=== PATIENT | male | born 1985 | race Caucasian/White ===

== ENCOUNTER 2019-07-22 16:36 | Emergency (ER) | payer BC ==
[2019-07-22] MEDS ORDERED: HYDROmorphone 0.5 MG/0.5 ML Syringe IVPUSH ONE (17:05)
[2019-07-22] MEDS ORDERED: Sodium Chloride 0.9% 10 ML Syringe FLUSH PRN ×2 (17:05→17:19)
[2019-07-22] MEDS ORDERED: Ondansetron 4 MG/2 ML SDV IVPUSH ONE (17:05)
[2019-07-22] MEDS ORDERED: Ketorolac 30 MG/ML SDV IVPUSH ONE (17:05)
[2019-07-22] MEDS ORDERED: Sodium Chloride 0.9% 1,000 ML IV SCH (17:15)
[2019-07-22] MEDS ORDERED: Iopamidol 612 MG/ML 100 ML Bottle IVPUSH ONE (17:19)
[2019-07-22] MEDS ORDERED: Diatrizoate Meglumine/Diatrizoate Sodium 37% 120 ML Bottle PO ONE (17:19)
--- NOTE | 2019-07-22 17:26 | EDM.PDOC ---
ED HPI GENERAL MEDICAL PROBLEM - General Chief Complaint: Abdominal Pain Stated Complaint: ABDOMINAL PAIN Time Seen by Provider: 07/22/19 16:49 Source of Information: Reports: Patient History Limitations: Reports: No Limitations - History of Present Illness INITIAL COMMENTS - FREE TEXT/NARRATIVE: Patient is a 33 year old male who presents with c/o LLQ abdominal pain, diarrhea , nausea, and vomiting. Pt states that when he awoke this morning, he had a couple episodes of watery diarrhea. While on his way to work, he developed LLQ abdominal pain which has been getting progressively worse throughout the day. He also c/o nausea with 1 emesis today. He denies a known fever or chills. He denies any chronic health conditions and has had no previous abdominal surgeries. Left Abdominal Pain Score (Numeric/FACES): 7 - Related Data Allergies Allergy/AdvReac Type Severity Reaction Status Date / Time No Known Allergies Allergy Verified 07/22/19 16:50 Home Meds: Home Meds Dicyclomine [Bentyl] 20 mg PO TID PRN #10 tab 07/22/19 [Rx] Ondansetron [Zofran ODT] 4 mg PO Q6H PRN #10 tab.dis 07/22/19 [Rx] Past Medical History Respiratory History: Reports: Sleep Apnea, Other (See Below) Social & Family History - Tobacco Use Smoking Status *Q: Current Every Day Smoker Years of Tobacco use: 14 Packs/Tins Daily: 0.5 - Caffeine Use Caffeine Use: Reports: None - Recreational Drug Use Recreational Drug Use: No ED ROS GENERAL - Review of Systems Review Of Systems: See Below Constitutional: Reports: No Symptoms. Denies: Fever, Chills, Weakness HEENT: Reports: No Symptoms Respiratory: Reports: No Symptoms. Denies: Shortness of Breath, Cough Cardiovascular: Reports: No Symptoms. Denies: Chest Pain Endocrine: Reports: No Symptoms GI/Abdominal: Reports: Abdominal Pain, Diarrhea, Nausea, Vomiting. Denies: Bloody Stool, Hematemesis, Hematochezia : Reports: No Symptoms. Denies: Flank Pain Musculoskeletal: Reports: No Symptoms Skin: Reports: No Symptoms Neurological: Reports: No Symptoms Psychiatric: Reports: No Symptoms Hematologic/Lymphatic: Reports: No Symptoms Immunologic: Reports: No Symptoms ED EXAM, GI/ABD - Physical Exam Exam: See Below Exam Limited By: No Limitations General Appearance: Alert, WD/WN, No Apparent Distress Respiratory/Chest: No Respiratory Distress, Lungs Clear, Normal Breath Sounds, No Accessory Muscle Use, Chest Non-Tender Cardiovascular: Normal Peripheral Pulses, Regular Rate, Rhythm, No Edema, No Gallop, No JVD, No Murmur, No Rub GI/Abdominal Exam: Normal Bowel Sounds, Soft, No Organomegaly, No Distention, Tender (LLQ abdominal pain). No: Guarding, Rigid, Rebound Neurological: Alert, Oriented, CN II-XII Intact, Normal Cognition, Normal Gait, Normal Reflexes, No Motor/Sensory Deficits Psychiatric: Normal Affect, Normal Mood Skin Exam: Warm, Dry, Intact, Normal Color, No Rash Course - Vital Signs Last Recorded V/S: Last Vital Signs Temp 98.1 F 07/22/19 16:47 Pulse 104 H 07/22/19 16:47 Resp 16 07/22/19 16:47 BP 125/92 H 07/22/19 16:47 Pulse Ox 99 07/22/19 16:47 - Orders/Labs/Meds Orders: Active Orders 24 hr Category Date Time Status Peripheral IV Care [RC] . DIRECTED Care 07/22/19 17:05 Active Dicyclomine [Bentyl] Med 07/22/19 19:07 Once 20 mg PO ONETIME ONE Sodium Chloride 0.9% [Normal Saline] 1,000 ml Med 07/22/19 17:15 Active IV ASDIRECTED Sodium Chloride 0.9% [Saline Flush] Med 07/22/19 17:05 Active 10 ml FLUSH ASDIRECTED PRN Sodium Chloride 0.9% [Saline Flush] Med 07/22/19 17:19 Active 10 ml FLUSH ONETIME PRN Peripheral IV Insertion Adult [OM.PC] Stat Oth 07/22/19 17:04 Ordered Medication Orders Sodium Chloride (Normal Saline) 1,000 mls @ 999 mls/hr IV ASDIRECTED FILIPPO Last Admin: 07/22/19 17:27 Dose: 999 mls/hr Sodium Chloride (Saline Flush) 10 ml FLUSH ASDIRECTED PRN PRN Reason: Keep Vein Open Last Admin: 07/22/19 18:32 Dose: 10 ml Sodium Chloride (Saline Flush) 10 ml FLUSH ONETIME PRN PRN Reason: Keep Vein Open Last Admin: 07/22/19 17:15 Dose: 10 ml Labs: Laboratory Tests 07/22/19 07/22/19 07/22/19 Range/Units 17:15 17:15 17:20 WBC 9.43 H (4.23-9.07) K/mm3 RBC 5.20 (4.63-6.08) M/mm3 Hgb 15.8 (13.7-17.5) gm/dl Hct 46.4 (40.1-51.0) % MCV 89.2 (79.0-92.2) fl MCH 30.4 (25.7-32.2) pg MCHC 34.1 (32.2-35.5) g/dl RDW Std Deviation 42.2 (35.1-43.9) fL Plt Count 166 (163-337) K/mm3 MPV 10.8 (9.4-12.3) fl Neut % (Auto) 75.3 H (34.0-67.9) % Lymph % (Auto) 13.7 L (21.8-53.1) % [place] % (Auto) 8.9 (5.3-12.2) % Eos % (Auto) 1.5 (0.8-7.0) Baso % (Auto) 0.3 (0.1-1.2) % Neut # (Auto) 7.10 H (1.78-5.38) K/mm3 Lymph # (Auto) 1.29 L (1.32-3.57) K/mm3 [place] # (Auto) 0.84 H (0.30-0.82) K/mm3 Eos # (Auto) 0.14 (0.04-0.54) K/mm3 Baso # (Auto) 0.03 (0.01-0.08) K/mm3 Sodium 139 (136-145) mEq/L Potassium 4.3 (3.5-5.1) mEq/L Chloride 104 (98-107) mEq/L Carbon Dioxide 29 (21-32) mEq/L Anion Gap 10.3 (5-15) BUN 15 (7-18) mg/dL Creatinine 1.3 (0.7-1.3) mg/dL Est Cr Clr Drug Dosing 88.71 mL/min Estimated GFR (MDRD) > 60 (>60) mL/min BUN/Creatinine Ratio 11.5 L (14-18) Glucose 89 (74-106) mg/dL Calcium 9.4 (8.5-10.1) mg/dL Total Bilirubin 0.5 (0.2-1.0) mg/dL AST 18 (15-37) U/L ALT 55 (16-63) U/L Alkaline Phosphatase 59 (46-116) U/L C-Reactive Protein 3.9 H* (<1.0) mg/dL Total Protein 7.6 (6.4-8.2) g/dl Albumin 4.0 (3.4-5.0) g/dl Globulin 3.6 gm/dL Albumin/Globulin Ratio 1.1 (1-2) Lipase 100 (73-393) U/L Urine Color Yellow (Yellow) Urine Appearance Clear (Clear) Urine pH 7.0 (5.0-8.0) Ur Specific [place] 1.025 (1.005-1.030) Urine Protein Negative (Negative) Urine Glucose (UA) Negative (Negative) Urine Ketones Negative (Negative) Urine Occult Blood Negative (Negative) Urine Nitrite Negative (Negative) Urine Bilirubin Negative (Negative) Urine Urobilinogen 0.2 (0.2-1.0) Ur Leukocyte Esterase Negative (Negative) Urine RBC 0-5 (0-5) /hpf Urine WBC 0-5 (0-5) /hpf Ur Squamous Epith Cells 0-5 (0-5) /hpf Amorphous Sediment Few H (NOT SEEN) /hpf Urine Bacteria Few (FEW) /hpf Urine Mucus Few (FEW) /hpf Meds: Medications Generic Name Dose Route Start Last Admin Trade Name Freq PRN Reason Stop Dose Admin Sodium Chloride 1,000 mls @ 999 mls/hr 07/22/19 17:15 07/22/19 17:27 Normal Saline IV 999 mls/hr ASDIRECTED FILIPPO Administration Sodium Chloride 10 ml 07/22/19 17:05 07/22/19 18:32 Saline Flush FLUSH 10 ml ASDIRECTED PRN Administration Keep Vein Open Sodium Chloride 10 ml 07/22/19 17:19 07/22/19 17:15 Saline Flush FLUSH 10 ml ONETIME PRN Administration Keep Vein Open Discontinued Medications Generic Name Dose Route Start Last Admin Trade Name Freq PRN Reason Stop Dose Admin Diatrizoate Meglum/Diatrizoate Sod 40 ml 07/22/19 17:19 07/22/19 18:31 Gastrografin 37% PO 07/22/19 17:20 40 ml ONETIME ONE Administration Hydromorphone HCl 0.5 mg 07/22/19 17:05 07/22/19 17:25 Dilaudid IVPUSH 07/22/19 17:06 Not Given ONETIME ONE Iopamidol 100 ml 07/22/19 17:19 07/22/19 18:30 Isovue-300 (61%) IVPUSH 07/22/19 17:20 100 ml ONETIME ONE Administration Ketorolac Tromethamine 30 mg 07/22/19 17:05 07/22/19 17:25 Toradol IVPUSH 07/22/19 17:06 30 mg ONETIME ONE Administration Ondansetron HCl 4 mg 07/22/19 17:05 07/22/19 17:23 Zofran IVPUSH 07/22/19 17:06 4 mg ONETIME ONE Administration - Re-Assessments/Exams Free Text/Narrative Re-Assessment/Exam: 07/22/19 19:08 CT scan of the abdomen pelvis showed bowel wall thickening within the cecum and the right colon compatible with a mild colitis. This however does not correlate with the area where the patient is tender. CT scan also showed gastroesophageal reflux of contrast with thickening of the distal esophageal wall suggesting chronic reflux esophagitis. Patient is not complaining of any upper abdominal pain at this time. My suspicions that he suffering from a viral gastroenteritis. We will discharge him home with a prescription for Bentyl for the abdominal cramping, as well as Zofran for nausea. Recommend a clear liquid diet for the next 24 to 48 hours. Recommend he follow-up in the clinic if his symptoms do not improve in the next 24 to 48 hours. Discharge instructions as documented. Departure - Departure Time of Disposition: 19:09 Disposition: Home, Self-Care 01 Condition: Good Clinical Impression: Gastroenteritis - Discharge Information *PRESCRIPTION DRUG MONITORING PROGRAM REVIEWED*: No *COPY OF PRESCRIPTION DRUG MONITORING REPORT IN PATIENT AMEE: No Prescriptions: Dicyclomine [Bentyl] 20 mg PO TID PRN #10 tab PRN Reason: Abdominal Pain Ondansetron [Zofran ODT] 4 mg PO Q6H PRN #10 tab.dis PRN Reason: Nausea/Vomiting Instructions: Viral Gastroenteritis, Adult Referrals: Jenna Naik PA-C [Primary Care Provider] - Forms: ED Department Discharge Additional Instructions: You were seen in the emergency department today for abdominal pain, diarrhea, nausea, and vomiting. Your work-up included blood work, urinalysis, and a CT scan of your abdomen and pelvis. Your work-up was found to be overall normal. There was a small area of inflammation in the right side of your colon, however this does not correlate with where your pain is located. As we discussed, it is likely that you are suffering from a viral gastroenteritis. A prescription for Bentyl for abdominal cramping and Zofran for nausea has been sent to [place] [facility]. Uses medications as prescribed. Recommend a clear liquid diet for the next 24 to 48 hours and then advance as tolerated. Avoid fruit juices and dairy products. If your pain has not resolved in 48 hours, would recommend that you follow-up in the clinic. If you experience any worsening symptoms, please not hesitate to return to the emergency department. Sepsis Event Note - Evaluation Sepsis Screening Result: No Definite Risk - Focused Exam Vital Signs: Vital Signs Temp Pulse Resp BP Pulse Ox 07/22/19 16:47 98.1 F 104 H 16 125/92 H 99 Date Exam was Performed: 07/22/19 Time Exam was Performed: 19:08 - My Orders Last 24 Hours: My Active Orders 07/22/19 17:04 Peripheral IV Insertion Adult [OM.PC] Stat 07/22/19 17:05 Peripheral IV Care [RC] . DIRECTED Sodium Chloride 0.9% [Saline Flush] 10 ml FLUSH ASDIRECTED PRN 07/22/19 17:15 Sodium Chloride 0.9% [Normal Saline] 1,000 ml IV ASDIRECTED 07/22/19 17:19 Sodium Chloride 0.9% [Saline Flush] 10 ml FLUSH ONETIME PRN 07/22/19 19:07 Dicyclomine [Bentyl] 20 mg PO ONETIME ONE - Assessment/Plan Last 24 Hours: My Active Orders 07/22/19 17:04 Peripheral IV Insertion Adult [OM.PC] Stat 07/22/19 17:05 Peripheral IV Care [RC] . DIRECTED Sodium Chloride 0.9% [Saline Flush] 10 ml FLUSH ASDIRECTED PRN 06/02/20 17:15 Sodium Chloride 0.9% [Normal Saline] 1,000 ml IV ASDIRECTED 07/22/19 17:19 Sodium Chloride 0.9% [Saline Flush] 10 ml FLUSH ONETIME PRN 07/22/19 19:07 Dicyclomine [Bentyl] 20 mg PO ONETIME ONE
--- NOTE | 2019-07-22 18:53 | CT ---
CT abdomen and pelvis Technique: Multiple axial sections were obtained from above the dome of the diaphragm inferiorly through the pubic symphysis. Intravenous and oral contrast was utilized. Delayed images were obtained through the bladder. Comparison: Prior abdominal x-ray performed earlier on the same day (2:46 PM). Findings: Visualized lung bases show nothing acute. Liver contains no focal parenchymal abnormality. Spleen appears within normal limits. Adrenal glands show no nodule. Pancreas is within normal limits. Gallbladder is collapsed but shows no calcified gallstones. Kidneys show symmetric contrast enhancement without hydronephrosis or mass. Aorta shows no aneurysm. No retroperitoneal adenopathy is seen. No mesenteric abnormalities are noted. No pelvic mass or adenopathy is identified. Delayed images shows contrast within the distal ureters and within the bladder. No inflammatory change or free fluid is seen within the abdomen or within the pelvis. Appendix not visualized with certainty. Mild bowel wall thickening is noted within the cecum and within the right colon. Small amount of gastroesophageal reflux is seen within the esophagus. Distal esophageal wall is also slightly thickened suggesting chronic reflux esophagitis. Bone window settings were reviewed. No acute osseous finding is appreciated. Impression: 1. Bowel wall thickening within the cecum and right colon. Findings are compatible with a mild colitis. 2. Gastroesophageal reflux of contrast with thickening of the distal esophageal wall suggesting chronic reflux esophagitis. Please correlate with patient's symptoms. 3. Nothing acute is otherwise seen on CT study of the abdomen and pelvis. Diagnostic code #3 This report was dictated in MDT
[2019-07-22] MEDS ORDERED: Dicyclomine 10 MG Cap PO ONE (19:07)
== END 2019-07-22 19:23 | disposition home or self-care (01) ==
LOC: JD.ED 16:36
DX: K52.9 Noninfective gastroenteritis and colitis, unspecified (principal); F17.210 Nicotine dependence, cigarettes, uncomplicated
CPT/HCPCS: 36415; 74177; 80053; 81001; 83690; 85025; 86140; 96361; 96374; 96375; 99284; A9270; J1885; J2405; J7030; Q9963; Q9967; 99283

== ENCOUNTER 2020-03-22 07:23 | Emergency (ER) | payer BC ==
--- NOTE | 2020-03-22 07:50 | EDM.PDOC ---
ED HPI GENERAL MEDICAL PROBLEM - General Chief Complaint: Eye Problems Stated Complaint: L EYE SWOLLEN/PAIN Time Seen by Provider: 03/22/20 07:40 Source of Information: Reports: Patient History Limitations: Reports: No Limitations - History of Present Illness INITIAL COMMENTS - FREE TEXT/NARRATIVE: The patient presents with left upper eyelid swelling and pain. This has been go ing on for a couple of days. This morning was the worst and he had a small pimple there and he popped it and now it is worse. He has no fever or chills. He still can see good. Onset: Gradual Duration: Day(s): Location: Reports: Face (Left upper eyelid) Quality: Reports: Sharp Severity: Moderate Improves with: Reports: None Worsens with: Reports: None Associated Symptoms: Reports: No Other Symptoms - Related Data Allergies Allergy/AdvReac Type Severity Reaction Status Date / Time No Known Allergies Allergy Verified 03/22/20 07:35 Home Meds: Home Meds Albuterol [Take Home: Albuterol 18 GM, 1 INH Pack] 1 puff INH BID PRN 03/22/20 [History] Fluticasone/Salmeterol [Advair 100-50] 1 puff INH BID 03/22/20 [History] Omeprazole 0 mg PO DAILY 03/22/20 [History] cephALEXin [Keflex] 500 mg PO Q6H #40 cap 03/22/20 [Rx] Past Medical History Respiratory History: Reports: Sleep Apnea, Other (See Below) Social & Family History - Tobacco Use Tobacco Use Status *Q: Current Every Day Tobacco User Years of Tobacco use: 15 Packs/Tins Daily: 0.5 - Caffeine Use Caffeine Use: Reports: Coffee - Alcohol Use Days Per Week of Alcohol Use: 2 Number of Drinks Per Day: 10 Total Drinks Per Week: 20 - Recreational Drug Use Recreational Drug Use: No ED ROS GENERAL - Review of Systems Review Of Systems: See Below Constitutional: Reports: No Symptoms HEENT: Reports: Other (Left upper eyelid swelling) Respiratory: Reports: No Symptoms Cardiovascular: Reports: No Symptoms Endocrine: Reports: No Symptoms GI/Abdominal: Reports: No Symptoms : Reports: No Symptoms Musculoskeletal: Reports: No Symptoms ED EXAM GENERAL W FULL EYE - Physical Exam Exam: See Below Exam Limited By: No Limitations General Appearance: Alert, No Apparent Distress Eye Exam: Left Eye: Other (Upper eyelid has an abrasion and edema), Bilateral Eye: EOMI Eyelids: Left: Edema, Erythema Conjunctiva & Sclera: Bilateral: Normal Appearance Extraocular Movements: Bilateral: Intact Nose: Normal Inspection Head: Atraumatic, Normocephalic Neck: Normal Inspection Respiratory/Chest: No Respiratory Distress Course - Vital Signs Last Recorded V/S: Last Vital Signs Temp 97.8 F 03/22/20 07:31 Pulse 92 03/22/20 07:31 Resp 18 03/22/20 07:31 BP 139/79 03/22/20 07:31 Pulse Ox 97 03/22/20 07:31 - Re-Assessments/Exams Free Text/Narrative Re-Assessment/Exam: 03/22/20 07:47 The patient has some cellulitis to his left upper eyelid. I will get him no some keflex. Departure - Departure Time of Disposition: 07:50 Disposition: Home, Self-Care 01 Condition: Good Clinical Impression: Cellulitis of left eyelid - Discharge Information *PRESCRIPTION DRUG MONITORING PROGRAM REVIEWED*: Not Applicable *COPY OF PRESCRIPTION DRUG MONITORING REPORT IN PATIENT AMEE: Not Applicable Prescriptions: cephALEXin [Keflex] 500 mg PO Q6H #40 cap Referrals: Jenna Naik PA-C [Primary Care Provider] - 1 Week Additional Instructions: Take the keflex 4 times per day for 10 days. Put warm compresses on the affected area 3 times per day for 5 days. Take tylenol or motrin for any pain. Please return if you are worse. Sepsis Event Note (ED) - Evaluation Sepsis Screening Result: No Definite Risk - Focused Exam Vital Signs: Vital Signs Temp Pulse Resp BP Pulse Ox 03/22/20 07:31 97.8 F 92 18 139/79 97
== END 2020-03-22 07:58 | disposition home or self-care (01) ==
LOC: JD.ED 07:23
DX: H00.034 Abscess of left upper eyelid (principal); Z72.0 Tobacco use
CPT/HCPCS: 99283

== ENCOUNTER 2020-11-06 14:12 | Emergency (ER) | payer BC ==
--- NOTE | 2020-11-06 16:45 | EDM.PDOC ---
ED HPI GENERAL MEDICAL PROBLEM - General Chief Complaint: Respiratory Problem Stated Complaint: COVID SX Time Seen by Provider: 11/06/20 14:47 Source of Information: Reports: Patient History Limitations: Reports: No Limitations - History of Present Illness INITIAL COMMENTS - FREE TEXT/NARRATIVE: 35-year-old male presents the emergency department with complaints of a 3-day history of cough, sinus congestion, chest pain associated with coughing, dry mouth, diarrhea, headache. Patient denies any fever or chills. Patient denies nausea or vomiting. Patient states he was ill with vomiting over Labor Day weekend. He did receive his first Covid vaccination in mid September. He states he smokes 1/2 pack a day for the past 16 years. He does have a history of COPD for which he uses an Advair and albuterol inhaler. Headache Pain Score (Numeric/FACES): 7 Throat Pain Score (Numeric/FACES): 5 Generalized Pain Score (Numeric/FACES): 4 - Related Data Allergies Allergy/AdvReac Type Severity Reaction Status Date / Time No Known Allergies Allergy Verified 03/22/20 07:35 Home Meds: Home Meds Albuterol [Take Home: Albuterol 18 GM, 1 INH Pack] 1 puff INH BID PRN 03/22/20 [History] Fluticasone/Salmeterol [Advair 100-50] 1 puff INH BID 03/22/20 [History] Omeprazole 0 mg PO DAILY 03/22/20 [History] Benzonatate [Tessalon Perle] 100 mg PO TID PRN #12 capsule 11/06/20 [Rx] predniSONE [Prednisone] 20 mg PO DAILY #5 tablet 11/06/20 [Rx] Past Medical History Respiratory History: Reports: Asthma, Sleep Apnea, Other (See Below) Other Respiratory History: emphysema Gastrointestinal History: Reports: GERD - Infectious Disease History Infectious Disease History: Reports: Chicken Pox Social & Family History - Family History Family Medical History: No Pertinent Family History - Tobacco Use Tobacco Use Status *Q: Current Every Day Tobacco User Years of Tobacco use: 16 Packs/Tins Daily: 0.5 - Caffeine Use Caffeine Use: Reports: Coffee, Soda, Tea - Recreational Drug Use Recreational Drug Use: No ED ROS GENERAL - Review of Systems Review Of Systems: Comprehensive ROS is negative, except as noted in HPI. ED EXAM, GENERAL - Physical Exam Exam: See Below Exam Limited By: No Limitations General Appearance: Alert, WD/WN, No Apparent Distress Ears: Normal External Exam, Hearing Grossly Normal Nose: Normal Inspection Throat/Mouth: Normal Inspection, Normal Lips, Normal Voice, No Airway Compromise Head: Atraumatic Neck: Normal Inspection, Supple Respiratory/Chest: No Respiratory Distress, Lungs Clear, Normal Breath Sounds, No Accessory Muscle Use. No: Chest Non-Tender (Tender due to coughing) Cardiovascular: Normal Peripheral Pulses, Regular Rate, Rhythm, No Edema, No Murmur Peripheral Pulses: 2+: Radial (L), Radial (R) GI/Abdominal: Normal Bowel Sounds, Soft, Non-Tender, No Distention (Male) Exam: Deferred Rectal (Males) Exam: Deferred Back Exam: Normal Inspection Extremities: Normal Inspection Neurological: Alert, Oriented, Normal Cognition Psychiatric: Normal Affect, Normal Mood Skin Exam: Warm, Dry, Intact, Normal Color, No Rash Lymphatic: No Adenopathy Course - Vital Signs Text/Narrative:: As stated above, patient presents with Covid type of symptoms and request to be tested for Covid. Exam is essentially unremarkable however he does have a paroxysmal cough noted when taking any deep breaths. He is hemodynamically stable and exam is otherwise unremarkable. Will order for the patient to have Covid swab testing. Last Recorded V/S: Last Vital Signs Temp 97.8 F 11/06/20 15:13 Pulse 97 11/06/20 15:13 Resp 30 H 11/06/20 15:13 BP 128/75 11/06/20 15:13 Pulse Ox 99 11/06/20 15:13 - Orders/Labs/Meds Labs: Laboratory Tests 11/06/20 Range/Units 15:00 SARS-CoV-2 RNA (KATE) Negative (NEGATIVE) - Re-Assessments/Exams Free Text/Narrative Re-Assessment/Exam: 11/06/20 16:41 Patient's Covid test is negative. He will be discharged to home with recommendations that he continue using his albuterol and Advair inhalers. I will send him home with a prescription for prednisone 20 mg tab daily x5 days. Departure - Departure Time of Disposition: 16:43 Disposition: Home, Self-Care 01 Condition: Good Clinical Impression: Viral URI with cough - Discharge Information Prescriptions: predniSONE [Prednisone] 20 mg PO DAILY #5 tablet Benzonatate [Tessalon Perle] 100 mg PO TID PRN #12 capsule PRN Reason: Cough Instructions: Viral Respiratory Infection, [id number] Referrals: Kathy Bell, DEXIGRAPH OPERATOR [Primary Care Provider] - Additional Instructions: You were seen in the emergency department today with 3-day history of cough, dry mouth, diarrhea and headache. Covid testing was completed and this was negative however I do recommend that you quarantine for 10 days time as it could be too early in the disease process to get a positive test result. Recommend being retested in about 5 days. If your Covid test is negative in 5 days time recommend getting your second Covid vaccination. I have sent prescription to your pharmacy for prednisone. You will need to take 1 tab daily for the next 5 days. I have also sent prescription for a medication called Tessalon Perles. You can take 1-2 tabs up to 3 times daily for cough. Be sure to get plenty rest and drink plenty of fluids. Should your condition worsen or change, do not hesitate returning to the emergency department. Sepsis Event Note (ED) - Focused Exam Vital Signs: Vital Signs Temp Pulse Resp BP Pulse Ox 11/06/20 15:13 97.8 F 97 30 H 128/75 99
== END 2020-11-06 17:05 | disposition home or self-care (01) ==
LOC: JD.ED 14:12
DX: J06.9 Acute upper respiratory infection, unspecified (principal); K21.9 Gastro-esophageal reflux disease without esophagitis; Z72.0 Tobacco use; Z79.899 Other long term (current) drug therapy; Z20.822 Contact with and (suspected) exposure to COVID-19
CPT/HCPCS: 99283; U0002

== ENCOUNTER 2023-12-11 17:28 | Emergency (ER) | payer BC ==
[2023-12-11 18:04] LABS: BASOPHILS PERCENT AUTO 0.5 % (0.0-1.0); EOSINOPHILS ABSOLUTE AUTO 0.3 K/mm3 (0.0-0.4); EOSINOPHILS PERCENT AUTO 3.9 % (0.0-6.0); HEMATOCRIT 43.4 % (42.0-52.0); HEMOGLOBIN 14.7 gm/dl (14.0-18.0); IMMATURE GRAN ABSOLUTE AUTO 0.05 K/mm3 (0.00-0.05); IMMATURE GRAN PERCENT AUTO 0.6 % (0.0-0.4); LYMPHOCYTES PERCENT AUTO 36.7 % (24.0-44.0); MEAN CORPUSCULAR HEMOGLOBIN 29.5 pg (28.0-32.0); MEAN CORPUSCULAR HGB CONC 33.9 g/dl (32.0-36.0); MEAN CORPUSCULAR VOLUME 87.1 fl (83.0-99.0); MEAN PLATELET VOLUME 10.6 fl (9.4-12.4); MONOCYTES ABSOLUTE AUTO 0.7 K/mm3 (0.0-0.8); MONOCYTES PERCENT AUTO 8.9 % (0.0-8.0); NEUTROPHILS PERCENT AUTO 49.4 % (41.0-71.0); PLATELET COUNT,PLT 196 K/mm3 (150-400); RED BLOOD CELL COUNT 4.98 M/mm3 (4.52-5.90); WHITE BLOOD CELL COUNT,WBC 8.18 K/mm3 (3.9-11.3)
[2023-12-11 18:24] LABS: INR 0.97; PROTHROMBIN TIME 10.3 SECONDS (9.7-12.0)
[2023-12-11 18:26] LABS: PTT,PARTIAL THROMBOPLSTIN TIME 27.3 SECONDS (21.7-31.4)
[2023-12-11 18:41] LABS: A/G RATIO 1.1 (1-2); ALANINE AMINOTRANSFERASE,ALT 77 U/L (16-63); ALBUMIN 3.9 g/dl (3.4-5.0); ALKALINE PHOSPHATASE 58 U/L (46-116); ASPARTATE AMNIOTRANSFERASE,AST 27 U/L (15-37); BILIRUBIN TOTAL 0.3 mg/dL (0.2-1.0); BLOOD UREA NITROGEN,BUN 14 mg/dL (7-18); BUN/CREATININE RATIO 9.3 (14-18); CALCIUM 9.4 mg/dL (8.5-10.1); CARBON DIOXIDE,CO2 27 mEq/L (21-32); CHLORIDE,CL 103 mEq/L (98-107); CREATININE 1.5 mg/dL (0.7-1.3); EST CRCL DRUG DOSING (CG) 73.29 mL/min; ESTIMATED GFR 61 mL/min (>60); GLUCOSE RANDOM 86 mg/dL (70-99); MAGNESIUM 1.9 mg/dL (1.8-2.4); PROTEIN TOTAL,TP 7.4 g/dl (6.4-8.2); SODIUM,NA 139 mEq/L (136-145)
[2023-12-11 18:47] LABS: D-DIMER QUANTITATIVE < 0.19 mg/L (0.19-0.50)
[2023-12-11 18:58] LABS: TROPONIN I HIGH SENSITIVITY < 4 pg/mL (<=76)
[2023-12-11] MEDS: Alum Hydrox/Mag Hydrox/Simeth 30 ML, Lidocaine 2% 15 ML PO ONE (19:13)
[2023-12-11] MEDS: Sodium Chloride 0.9% 1,000 ML IV SCH (19:27)
== END 2023-12-11 21:00 | disposition home or self-care (01) ==
LOC: JD.ED 17:28
DX: R07.2 Precordial pain (principal); J45.909 Unspecified asthma, uncomplicated; K21.9 Gastro-esophageal reflux disease without esophagitis; Z87.891 Personal history of nicotine dependence; Z79.51 Long term (current) use of inhaled steroids; Z79.52 Long term (current) use of systemic steroids; Z79.899 Other long term (current) drug therapy
CPT/HCPCS: 36415; 71045; 80053; 83735; 83880; 84484; 85025; 85379; 85610; 85730; 93005; 96360; 99285; A9270; J7030